=== PATIENT | female | born 1955 | race Caucasian/White ===

== ENCOUNTER 2022-08-05 12:27 | Emergency (ER) | payer MEDICARE, BC, SELFPAY ==
--- NOTE | ~2022-08-05 | XR_ITS ---
XR forearm RT 2V 08/05/2022 13:33 Indication: Status post fall. Arm pain. Procedure: 2 views right forearm Comparison: No prior studies for comparison. Findings: There is moderate polyarticular osteoarthritis of the right wrist and elbow. There is widen ing of the scapholunate distance, consistent with dissociation. Osteopenia. No acute fracture, sublux ation or dislocation. No significant soft tissue abnormality. No foreign bodies. 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 Reviewed, dictated and finalized at location L. 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
--- NOTE | ~2022-08-05 | XR_ITS ---
XR humerus RT 08/05/2022 13:32 Indication: Right arm pain after fall Procedure: 2 views right humerus Comparison: No prior studies for comparison. Findings: Osteopenia. There are degenerative changes of the glenohumeral joint with multiple loose kalpana dies surrounding the joint space. No acute fracture is identified. No focal soft tissue abnormality. No foreign bodies. Impression: 1: No acute bone or joint abnormality. Reviewed, dictated and finalized at location L. Impression: 1: No acute bone or joint abnormality.
[2022-08-05 12:46] VITALS: BP 161/96; PULSE 123; TEMP 36.7; O2SAT 98
[2022-08-05 12:53] VITALS: BP 161/96; PULSE 123; RESP 19; TEMP 36.7; O2SAT 98
--- NOTE | 2022-08-05 14:03 | ED.EXTPRO ---
HPI - Extremity Problem General Chief complaint: Extremity Problem,Nontraumatic Stated complaint: R forearm pain Time Seen by Provider: 08/05/22 13:38 Source: patient History of Present Illness HPI Narrative: 67 years old white female presents with right forearm burning sensation from the elbow to the wrist started over 4 months ago. History of a fall and chronic right elbow pain since February 2021. Patient been seen by a pain management physician. She denies any fever, chills, nausea, vomiting, shortness pain or chest pain. Patient denies any recent trauma. Pain worse with activity, better if she hang her arm out of the bed during sleep at night Related Data Home Medications Medication Instructions Recorded Confirmed amitriptyline 100 mg tablet PO 10/30/19 amoxicillin 250 mg-potassium 1 tablet PO Q8H 10/30/19 clavulanate 125 mg tablet apixaban 5 mg tablet 5 mg PO BID 10/30/19 clonazepam 1 mg tablet 1 mg PO DAILY 10/30/19 cyclobenzaprine 10 mg tablet 10 mg PO TID 10/30/19 diclofenac sodium 1 % gel topical 2 gm topical QID 10/30/19 kit (Diclo Gel) gabapentin 300 mg capsule 300 mg PO TID 10/30/19 omega-3 fatty acids 1,000 mg See Rx Instructions PO DAILY 10/30/19 capsule (Fish Oil Concentrate) ondansetron 4 mg disintegrating 4 mg PO Q8H 10/30/19 tablet Allergies Allergy/AdvReac Type Severity Reaction Status Date / Time No Known Allergies Allergy Verified 08/05/22 12:57 Review of Systems Review of Systems: All systems reviewed & are unremarkable except as noted in HPI and below Exam Narrative: General appearance: Well-developed, well-nourished Skin: Normal color Head: Normocephalic, nontraumatic Eyes: Clear conjunctiva ENT: Oropharynx normal, ears normal, nose normal Neck: Supple, nontender Chest and respiratory: Airway patent, no respiratory distress, no accessory muscle use Heart: Regular rate/rhythm Abdomen: Soft, nontender, no organomegaly, quiet bowel sounds Vascular: Normal peripheral pulses, normal capillary refill. Musculoskeletal: Right upper extremity exam showed no swelling, erythema, warmth, opening wound, slight limited range of motion of the right elbow and right shoulder. 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 Date: 08/05/22 Time: 14:09 Vital Signs Vital signs: Vital Signs Temperature 36.7 C 08/05/22 12:46 Pulse Rate 123 H 08/05/22 12:46 Blood Pressure 161/96 H 08/05/22 12:46 Pulse Oximetry 98 08/05/22 12:46 Temperature 36.7 C 08/05/22 12:53 Pulse Rate 123 H 08/05/22 12:53 Respiratory Rate 19 08/05/22 12:53 Blood Pressure 161/96 H 08/05/22 12:53 Pulse Oximetry 98 08/05/22 12:53 Oxygen Delivery Room Air 08/05/22 12:53 MDM - Extremity (Nontraumatic) MDM Narrative Medical decision making narrative: Patient presents with chronic burning sensation of the right forearm over 4 months ago. Differential diagnosis is peripheral neuropathy, strain, sprain, arthritis. Physical examination is remarkable for right shoulder and right elbow pain with movement otherwise within normal limits. X-ray of the right forearm showed no acute abnormality. Patient probably need to follow-up with neurologist for nerve conduction test to rule out the possibility of nerve related symptoms. Patient been managed by pain management clinic. Imaging Data Radiologist's impression: Impressions Humerus X-Ray 08/05/22 13:34 Impression: 1: No acute bone or joint abnormality. Forearm X-Ray 08/05/22 13:47 Impression: 1: Moderate polyarticular osteoarthriti
[2022-08-05 14:15] VITALS: BP 144/85; PULSE 98; RESP 18; O2SAT 99
== END 2022-08-05 14:16 | disposition home or self-care (01) ==
LOC: ANHED 14:12
PROVIDERS: Emergency Provider Emergency Medicine; PCP Internal Medicine Endocrinology, Diabetes & Metabolism
DX: R20.2 Paresthesia of skin (principal); M19.021 Primary osteoarthritis, right elbow; Z79.01 Long term (current) use of anticoagulants
CPT/HCPCS: 73060; 73090; 99283

== ENCOUNTER 2022-08-21 11:09 | Outpatient (CLI) | payer MEDICARE, BC, SELFPAY ==
--- NOTE | ~2022-08-21 | MM_ITS ---
EXAMINATION: MM screening opal BI w gil HISTORY: Screening mammogram TECHNIQUE: Craniocaudal and mediolateral oblique 3-D tomosynthesis images were obtained and synthetic 2-D images were generated. CAD analysis was submitted and interpreted. COMPARISON: 05/18/2017, 07/26/2014 BREAST PARENCHYMAL COMPOSITION: The breasts are almost entirely fatty. FINDINGS: No suspicious mass, calcification, or architectural distortion are identified in either iraj ast to suggest malignancy. There has been no suspicious interval change. IMPRESSION: 1. No mammographic evidence of malignancy. 2. Recommend routine screening mammography in one year. BI-RADS Category 1: Negative Reviewed, dictated and finalized at location A.
--- NOTE | ~2022-08-21 | DEXA_ITS ---
Bone Density Report Name: LIGIA BROOKS Age: 67 Sex: Female Ethnicity: White Date of : 1955 Indication: postmenopausal; screening for osteoporosis; height loss; prior fracture; Referring Provider: PRAMOD CELESTIN Study: Bone densitometry was performed. Exam Date: August 21, 2022 Accession number: [id number] Bone Density: Region BMD T-score Z-score Classification AP Spine(L1, L2) 1.152 1.6 3.4 Normal Femoral Neck (Left) 0.642 -1.9 -0.2 Osteopenia Total Hip (Left) 0.813 -1.1 0.3 Osteopenia Femoral Neck (Right) 0.678 -1.5 0.1 Osteopenia Total Hip (Right) 0.797 -1.2 0.2 Osteopenia Total Hip Mean 0.805 -1.2 0.3 Osteopenia World Health Organization criteria for BMD impression classify patients as: Normal (T-score at or above -1.0), Osteopenia (T-score between -1.0 and -2.5), or Osteoporosis (T-score at or below -2.5). 10-year Fracture Risk(1): Major Osteoporotic Fracture 17% Hip Fracture 2.6% Reported Risk Factors: [place] (), Neck BMD=0.642, BMI=26.1, previous fracture (1) FRAX(R) Version 3.08. Fracture probability calculated for an untreated patient. Fracture probability may be lower if the patient has received treatment. Clinical Information Provided by Patient: Has had a low trauma fracture Patient maximum height was 65.5 Menopause Age: 47 No regular weight bearing exercise Onset of menses at age 14 Number of children 1 Impression: The patient has low bone mass, based on the Left Femoral Neck T-score. The patient has an estimated ten-year risk of hip fracture of 2.6% and an estimated ten-year risk of major fracture of 17%, based on the WHO FRAX algorithm. The patient has risk factors, including: previous fracture. Discussion: BONE DENSITY IS LOW AT ONE OR MORE SKELETAL SITES. This patient's lowest T-score is low at one or more skeletal sites. It meets the World Health Organization's (WHO) criteria for ?low bone mass? (T-score between -1.0 and -2.5). The patient's 10-year risk of fracture as calculated by FRAX is less than the threshold where pharmacological therapy is recommended by the National Osteoporosis Foundation (NOF). However, all treatment decisions require clinical judgment and consideration of individual patient factors, including patient preferences, comorbidities, previous drug use, risk factors not captured in the FRAX model (e.g., frailty, falls, vitamin D deficiency, increased bone turnover, interval significant decline in bone density) and possible under or overestimation of fracture risk by FRAX. The patient should follow a healthful lifestyle (good nutrition with adequate calcium and vitamin D, and appropriate weight-bearing exercise). Follow-Up: Consider repeating this study in 2 to 3 years to reassess this patient's status, or sooner if
== END 2022-08-21 11:10 | disposition home or self-care (01) ==
LOC: ANHIMG 11:19
PROVIDERS: PCP Internal Medicine Endocrinology, Diabetes & Metabolism; Visit Provider Obstetrics & Gynecology Gynecology
DX: Z12.31 Encounter for screening mammogram for malignant neoplasm of breast (principal); Z78.0 Asymptomatic menopausal state; M85.852 Other specified disorders of bone density and structure, left thigh; M85.851 Other specified disorders of bone density and structure, right thigh
CPT/HCPCS: 77063; 77067; 77080

== ENCOUNTER 2022-10-19 14:20 | Outpatient (CLI) | payer MEDICARE, BC, SELFPAY ==
--- NOTE | ~2022-10-19 | MR_ITS ---
MRI of the right shoulder Technique: Axial proton-density fat-sat images, coronal proton density fat-sat and T2 fat-sat images, and sagittal T1-weighted and T2 fat-sat images were acquired. Clinical History: Pain Findings: There is moderate AC joint degenerative change. Coracoclavicular, coracoacromial, and corac ohumeral ligaments appear to remain intact. There is extensive moderate to high-grade partial thickness articular surface tearing involving essen tially the entire supraspinatus tendon. Tear involves approximately 60-70% of the total tendon thickn ess throughout most of the tendon, with more high-grade tearing focally at the very distal anterior i nsertion. There is moderate tendinosis of the infraspinatus tendon without definite partial or full-t hickness tear. Subscapularis tendon is probably intact, with moderate to advanced tendinosis. Tendon of the long hea d of the biceps is intact. There is superior labral tear, with anterior and posterior extension. There is probable near circumfe rential labral tearing. There is severe glenohumeral joint degenerative change, with diffuse grade IV chondromalacia and infe romedial humeral head osteophyte. There are multiple loose bodies in the joint, especially in the sub scapularis recess (largest loose body measuring 1.7 cm in diameter), with additional loose bodies in the biceps tendon sheath (measuring up to 0.9 cm in diameter). Inferior glenohumeral ligament is intact. No significant fluid distention of the subacromial/subdelto id bursa. No muscle atrophy or edema. Impression: Extensive moderate to high-grade partial thickness articular surface tearing of the supraspinatus ten don, as detailed above. Severe glenohumeral joint degenerative change, with multiple loose bodies, predominantly in the subsc apularis recess and in the biceps tendon sheath. Please see details above. Circumferential degenerative labral tearing. Reviewed, dictated and finalized at [facility]. Impression: Extensive moderate to high-grade partial thickness articular surface tearing of the supraspinatus tendon, as detailed above. Severe glenohumeral joint degenerative change, with multiple loose bodies, pred ominantly in the subscapularis recess and in the biceps tendon sheath. Please s ee details above. Circumferential degenerative labral tearing.
== END 2022-10-19 14:21 | disposition home or self-care (01) ==
PROVIDERS: PCP Internal Medicine Endocrinology, Diabetes & Metabolism
DX: M75.111 Incomplete rotator cuff tear or rupture of right shoulder, not specified as traumatic (principal); M24.011 Loose body in right shoulder
CPT/HCPCS: 73221

== ENCOUNTER 2022-12-30 05:55 | Emergency (ER) | payer MEDICARE, BC, SELFPAY ==
--- NOTE | ~2022-12-30 | US_ITS ---
EXAMINATION: US pelvic complete w TV DATE: 12/30/2022 09:32 INDICATION: Vaginal bleeding TECHNIQUE: Multiple transabdominal and endovaginal sonographic images of the pelvis were obtained. COMPARISON: None. FINDINGS: The uterus measures 5.4 x 2.7 x 3.0 cm. The endometrial complex measures 6 mm in thickness. The righ t ovary is not visualized. The left ovary measures 1.1 x 1.0 x 0.8 cm. With internal vascular flow on color Doppler. There is a trace amount of free fluid in the pelvis. IMPRESSION: 1. Endometrial complex measures 6 mm which would be abnormal in a postmenopausal woman without hormon e replacement and in the setting of abnormal vaginal bleeding would recommend further evaluation with hysteroscopy. Reviewed, dictated and finalized at location A. IMPRESSION: 1. Endometrial complex measures 6 mm which would be abnormal in a postmenopausa l woman without hormone replacement and in the setting of abnormal vaginal blee ding would recommend further evaluation with hysteroscopy.
[2022-12-30 05:58] VITALS: BP 132/81; PULSE 87; RESP 15; TEMP 36.6; O2SAT 100
[2022-12-30 07:07] LABS: Basophils Absolute Auto 0.1 K/mm3 (0.0-0.1); Basophils Percent Auto 0.6 % (0.2-1.2); Eosinophils Absolute Auto 0.3 K/mm3 (0-0.3); Hematocrit 43.6 % (37.0-47.0); Hemoglobin 14.2 g/dL (12.0-15.0); Immature Granulocyte Absolute 0.04 K/mm3 (0.00-0.031); Immature Granulocyte Percent A 0.4 % (0-0.5); Lymphocytes Absolute Auto 4.51 K/mm3 (0.9-3.2); Lymphocytes Percent Auto 41.2 % (18.3-44.2); Mean Corpuscular HGB Conc 32.6 g/dl (32-36); Mean Corpuscular Hemoglobin 32.3 pg (26-34); Mean Corpuscular Volume 99.3 fl (80-100); Mean Platelet Volume 8.5 fl (7.4-10.4); Monocytes Absolute Auto 0.8 K/mm3 (0.1-0.6); Monocytes Percent Auto 7.1 % (2.6-8.5); Neutrophils Absolute Auto 5.2 K/mm3 (1.3-6.7); Neutrophils Percent Auto 47.7 % (45.5-73.1); Platelet Count Result 292 k/mm3 (150-375); Red Blood Count 4.39 M/mm3 (4.2-5.4); Red Cell Distribution Width 12.5 % (11.5-14.5)
[2022-12-30 07:13] LABS: Alanine Aminotransferase 21 U/L (6-35); Albumin Level 4.5 g/dL (3.5-5.1); Alkaline Phosphatase 107 U/L (38-126); Anion Gap 9 mmol/L (8-16); Aspartate Amino Transferase 22 U/L (14-36); Bilirubin,Total 0.5 mg/dL (0.2-1.3); Blood Urea Nitrogen 14 mg/dL (7-17); Calcium 9.3 mg/dL (8.4-10.2); Carbon Dioxide 32 mmol/L (22-30); Chloride 102 mmol/L (98-107); Estimated CRCL calculation 57 ml/min; Estimated Glomerular Filt Rate > 60; Glucose 109 mg/dL (65-110); Potassium 3.8 mmol/L (3.4-5.0); Sodium 143 mmol/L (137-145)
[2022-12-30 07:25] VITALS: O2SAT 98
[2022-12-30 07:25] LABS: Bilirubin Urine Negative (Negative); Blood Urine 3+ (Negative); Glucose Urine UA Negative (Negative); Ketones Urine Negative (Negative); Leukocyte Esterase Ur 1+ LEU/UL (Negative); Nitrate Urine Negative (Negative); Protein Urine 2+ mg/dL (Negative); Specific Grav Ur 1.007 (1.001-1.035); Urobilinogen Urine 0.2 mg/dL (<2.0)
[2022-12-30 07:28] LABS: Bacteria Urine None Seen /hpf; Non Pathogenic Casts 0-2; RBC Urine >100 /hpf (0-2); Squamous Epithelial Cell Urine None seen /hpf (Few)
[2022-12-30 07:33] LABS: Appearance Urine Cloudy (Clear); Color Urine Light Red (Yellow)
[2022-12-30 07:34] LABS: Add Urine Microscopic? YES
[2022-12-30 07:38] LABS: Partial Thromboplastin Time 35.2 SECONDS (22.3-36.8)
[2022-12-30 07:39] VITALS: O2SAT 98
[2022-12-30 07:45] VITALS: O2SAT 96
[2022-12-30 07:46] VITALS: BP 117/53; O2SAT 96
[2022-12-30 07:47] VITALS: RESP 14; O2SAT 96
[2022-12-30] MEDS: SODIUM CHLORIDE 0.9% IV 1,000 ML 999 ML IV CONT (08:12)
--- NOTE | 2022-12-30 08:16 | PC.NURSE ---
Patient off unit to US.
--- NOTE | 2022-12-30 10:13 | ED.FEMALEGU ---
HPI - Female Genitourinary General Chief complaint: Vaginal Bleeding Stated complaint: vaginal bleeding i think it is from urine Time Seen by Provider: 12/30/22 08:52 Source: patient Mode of arrival: ambulatory Limitations: no limitations History of Present Illness HPI Narrative: Vito is a 67-year-old female patient presenting to the clinic today with complaints of possible vaginal bleeding verses hematuria. She reports that on it was raining and she was trying to remove some rocks from her ditch and fell into some dirty rain water in the ditch and did not clean off right away. She denies any urinary symptoms. States she noticed this morning when she voided that she had blood in the toilet. She does have a history of ulcerative colitis. She does not feel as though the blood is coming from the vagina. Related Data Home Medications Medication Instructions Recorded Confirmed amitriptyline 100 mg tablet PO 10/30/19 amoxicillin 250 mg-potassium 1 tablet PO Q8H 10/30/19 clavulanate 125 mg tablet apixaban 5 mg tablet 5 mg PO BID 10/30/19 clonazepam 1 mg tablet 1 mg PO DAILY 10/30/19 cyclobenzaprine 10 mg tablet 10 mg PO TID 10/30/19 diclofenac sodium 1 % gel topical 2 gm topical QID 10/30/19 kit (Diclo Gel) gabapentin 300 mg capsule 300 mg PO TID 10/30/19 omega-3 fatty acids 1,000 mg See Rx Instructions PO DAILY 10/30/19 capsule (Fish Oil Concentrate) ondansetron 4 mg disintegrating 4 mg PO Q8H 10/30/19 tablet Allergies Allergy/AdvReac Type Severity Reaction Status Date / Time No Known Allergies Allergy Verified 08/05/22 12:57 Review of Systems Review of Systems: Pertinent positives per HPI. Patient denies any fever, chills, rash, headache, visual changes, dizziness, cough, runny nose, sore throat, shortness of breath, chest pain, palpitations, nausea, vomiting, diarrhea, constipation, abdominal pain, or any urinary issues. PMFSH Comments At the time of my signature, I reviewed and agree with the nursing past medical, surgical, social, and family history. There is no relevant family history pertinent to the patient complaint. Exam Narrative: General: Well-developed, well nourished, in no apparent distress Head: Normocephalic, atraumatic. Cardio: Regular rate and rhythm, s1 and s2 normal, no murmur appreciated. Resp: Clear to auscultation bilaterally, no rhonchi, rales, wheezing or rubs. Abdomen: Soft, pliable, bowel sounds present in all quadrants, mild pain over the suprapubic bladder-tender to palpation, no CVAT tenderness. : Pelvic exam performed with Nicole RN at bedside. Verbal consent obtained from patient. Normal external female genitalia without lesions or masses, Urinary meatus: patent without discharge, Vagina: No lesions, masses, or discharge, Cervix: pink without mass, lesions, discharge, or tenderness. Adnexa: without palpable mass or tenderness. Rectum: No bleeding or mass, external hemorrhoids visualized. Course Course Emergency Course: Portions of this record may have been created with voice recognition software. Vital Signs Vital signs: Vital Signs Temperature 36.6 C 12/30/22 05:58 Pulse Rate 87 12/30/22 05:58 Respiratory Rate 15 12/30/22 05:58 Blood Pressure 132/81 12/30/22 05:58 Pulse Oximetry 100 12/30/22 05:58 Oxygen Delivery Room Air 12/30/22 05:58 Temperature 36.6 C 12/30/22 05:58 Pulse Rate 87 12/30/22 05:58 Respiratory Rate 14 12/30/22 07:47 Blood Pressure 117/53 L 12/30/22 07:46 Pulse Oximetry 96 12/30/22 07:47 Oxygen Delivery Room Air 12/30/22 05:58 Vital signs reviewed MDM - Female Genitourinary MDM Narrative Medical decision making narrative: At the time of visit patient is resting on the exam stretcher. Patient is having hematuria- urinalysis shows 1+ leukocyte, 6-10 white blood cells, red blood cells, protein positive,and 3+ blood in the urine. Pelvic exam was performed
== END 2022-12-30 10:37 | disposition home or self-care (01) ==
PROVIDERS: Student in an Organized Health Care Education/Training Program; Emergency Provider Nurse Practitioner Family; PCP Internal Medicine Endocrinology, Diabetes & Metabolism
DX: N39.0 Urinary tract infection, site not specified (principal); R31.29 Other microscopic hematuria; K51.90 Ulcerative colitis, unspecified, without complications; Z79.01 Long term (current) use of anticoagulants
CPT/HCPCS: 36415; 76830; 76856; 80053; 81001; 85025; 85610; 85730; 86850; 86900; 86901; 87086; 96360; 99284; J7030

== ENCOUNTER 2023-08-28 08:07 | Emergency (ER) | payer MEDICARE, BC, SELFPAY ==
--- NOTE | ~2023-08-28 | XR_ITS ---
EXAMINATION: XR chest 1V portable DATE: 08/28/2023 08:39 INDICATION: Cough and shortness of breath. TECHNIQUE: A single frontal view of the chest was obtained. COMPARISON: None. FINDINGS: There is mild atelectasis in left lower lung zone. No pleural effusion or pneumothorax. The heart size is normal. IMPRESSION: 1. Mild atelectasis in left lower lung zone. Reviewed, dictated and finalized at location A.
[2023-08-28 08:14] VITALS: BP 144/103; PULSE 105; RESP 23; TEMP 36.8; O2SAT 98
--- NOTE | 2023-08-28 08:14 | ECG_ITS ---
SEE SCANNED COPY FOR CONFIRMED REPORT MTDD
--- NOTE | 2023-08-28 08:22 | ED.SOB ---
HPI - SOB/Dyspnea General Chief Complaint: Shortness of Breath/Dyspnea Stated Complaint: diff brearthing/cough Time Seen by Provider: 08/28/23 08:09 History of Present Illness HPI Narrative: 68-year-old female presenting to the emergency department for evaluation of cough and associated shortness of breath. Patient states he began developing symptoms on Tuesday and was evaluated in outside hospital on Tuesday. Patient was diagnosed with a cough with no underlying pneumonia. Patient states her symptoms worsened yesterday and so she presented to the emergency department today. Patient has a deep cough. Patient denies any history of COPD. Patient denies frequent pneumonia. Patient does report seasonal allergies and feels that sinus congestion seasonal allergies may be playing a part in her current illness. Related Data Home Medications Medication Instructions Recorded Confirmed amitriptyline 100 mg tablet PO 10/30/19 amoxicillin 250 mg-potassium 1 tablet PO Q8H 10/30/19 clavulanate 125 mg tablet apixaban 5 mg tablet 5 mg PO BID 10/30/19 clonazepam 1 mg tablet 1 mg PO DAILY 10/30/19 cyclobenzaprine 10 mg tablet 10 mg PO TID 10/30/19 diclofenac sodium 1 % gel topical 2 gm topical QID 10/30/19 kit (Diclo Gel) gabapentin 300 mg capsule 300 mg PO TID 10/30/19 omega-3 fatty acids 1,000 mg See Rx Instructions PO DAILY 10/30/19 capsule (Fish Oil Concentrate) ondansetron 4 mg disintegrating 4 mg PO Q8H 10/30/19 tablet Allergies Allergy/AdvReac Type Severity Reaction Status Date / Time No Known Allergies Allergy Verified 08/28/23 08:20 Review of Systems Review of Systems: All systems reviewed & are unremarkable except as noted in HPI and below Exam Narrative: APPEARANCE: Well appearing, no pain, no distress, well-nourished. HEAD: normocephalic, atraumatic. EYES: PERRLA/EOMI, conjunctivae clear. NOSE: Normal no drainage EARS:TMS clear with good light reflex. THROAT: Pharynx clear, no exudate. NECK: Supple. No adenopathy, no masses. RESPIRATORY: Coarse lung sounds CARDIOVASCULAR: Regular rate and rhythm without murmurs rubs or gallops. ABDOMINAL: Soft, nontender, nondistended, normal bowel sounds MUSCULOSKELETAL: Moves all extremities. Strength/ROM intact, No edema, No calf tenderness. NEURO: Alert. Cranial nerves II through XII intact. Grossly intact SKIN: Warm, dry. Normal Color Course Course Emergency Course: Patient felt improved with treatment and is being discharged home with treatment for suspected pneumonia. Vital Signs Vital signs: Vital Signs Temperature 98.3 F 08/28/23 08:14 Pulse Rate 105 H 08/28/23 08:14 Respiratory Rate 23 H 08/28/23 08:14 Blood Pressure 144/103 H 08/28/23 08:14 Pulse Oximetry 98 08/28/23 08:14 Oxygen Delivery Room Air 08/28/23 08:14 Temperature 98.3 F 08/28/23 08:14 Pulse Rate 82 08/28/23 10:28 Respiratory Rate 20 08/28/23 10:28 Blood Pressure 118/76 08/28/23 10:28 Pulse Oximetry 98 08/28/23 10:28 Oxygen Delivery Room Air 08/28/23 08:14 MDM - SOB/Dyspnea MDM Narrative Medical decision making narrative: 68-year-old female presents emergency department for evaluation of cough and congestion. Patient has had symptoms since Tuesday and on Tuesday was started on medication. Patient presenting ED for evaluation of worsening symptoms. The patient is afebrile with no leukocytosis and a stable hemoglobin of 13.8, no acute abnormalities on the patient's CMP patient's BNP is not elevated. Patient was negative for influenza RSV and for COVID. Chest x-ray shows no large pneumonia. Patient does have significant wheeze on exam that was improved with presents treatments. Patient will be started on antibiotics, prednisone and her albuterol will be refilled. Differential Diagnosis Differential diagnosis: Likely acute exacerbation of chronic obstructive airways disease, congestive heart failure, community acquired pneumonia an
[2023-08-28 08:25] VITALS: PULSE 109; RESP 20
[2023-08-28] MEDS: ALBUTEROL SULFATE NEB 2.5 MG/3 ML INH 5 MG INHALATION (08:25)
[2023-08-28 08:26] LABS: Basophils Percent Auto 0.5 % (0.2-1.2); Eosinophils Absolute Auto 0.3 K/mm3 (0-0.3); Eosinophils Percent Auto 2.8 % (0-4.4); Hematocrit 41.7 % (37.0-47.0); Hemoglobin 13.8 g/dL (12.0-15.0); Immature Granulocyte Absolute 0.02 K/mm3 (0.00-0.031); Immature Granulocyte Percent A 0.2 % (0-0.5); Lymphocytes Absolute Auto 3.04 K/mm3 (0.9-3.2); Lymphocytes Percent Auto 34.4 % (18.3-44.2); Mean Corpuscular HGB Conc 33.1 g/dl (32-36); Mean Corpuscular Hemoglobin 31.9 pg (26-34); Mean Corpuscular Volume 96.5 fl (80-100); Mean Platelet Volume 8.4 fl (7.4-10.4); Monocytes Absolute Auto 0.8 K/mm3 (0.1-0.6); Monocytes Percent Auto 9.4 % (2.6-8.5); Neutrophils Absolute Auto 4.7 K/mm3 (1.3-6.7); Neutrophils Percent Auto 52.7 % (45.5-73.1); Platelet Count Result 235 k/mm3 (150-375); Red Blood Count 4.32 M/mm3 (4.2-5.4); Red Cell Distribution Width 12.5 % (11.5-14.5); White Blood Count 8.8 K/mm3 (4.5-10.0)
[2023-08-28 08:36] LABS: Alanine Aminotransferase 18 U/L (6-35); Albumin Level 4.6 g/dL (3.5-5.1); Alkaline Phosphatase 113 U/L (38-126); Anion Gap 8 mmol/L (4-12); Aspartate Amino Transferase 40 U/L (14-36); Bilirubin,Total 0.5 mg/dL (0.2-1.3); Blood Urea Nitrogen 12 mg/dL (7-17); Calcium 9.3 mg/dL (8.4-10.2); Carbon Dioxide 29 mmol/L (22-30); Chloride 106 mmol/L (98-107); Estimated CRCL calculation 67 ml/min; Estimated Glomerular Filt Rate > 60; Glucose 106 mg/dL (65-110); Potassium 3.8 mmol/L (3.4-5.0); Sodium 143 mmol/L (137-145)
[2023-08-28 08:40] VITALS: PULSE 104; RESP 18
[2023-08-28] MEDS: LORazepam (*CRX) 0.5 MG TABLET PO (09:02)
[2023-08-28 09:05] LABS: Influenza A QL RT-PCR Negative (Negative); Influenza B QL RT-PCR Negative (Negative); RSV RNA, RT-PCR Negative (Negative); SARS-CoV-2 RNA PCR Negative (Negative)
[2023-08-28 09:09] VITALS: BP 122/75; PULSE 114; RESP 20; O2SAT 99
--- NOTE | 2023-08-28 09:28 | PC.NURSE ---
at 0900, called lab to add on BNP.
[2023-08-28 09:55] LABS: NT Pro B Type Natriuretic Pept 205 pg/mL (19.9-100)
[2023-08-28] MEDS: AMOXICILLIN/CLAVULANATE K 875-125 MG TAB 1 TABLET PO (10:13)
[2023-08-28] MEDS: AZITHROMYCIN 250 MG TABLET 500 MG PO (10:14)
[2023-08-28] MEDS: predniSONE 20 MG TABLET 40 MG PO (10:14)
[2023-08-28 10:28] VITALS: BP 118/76; PULSE 82; RESP 20; O2SAT 98
== END 2023-08-28 10:29 | disposition home or self-care (01) ==
PROVIDERS: Emergency Provider Emergency Medicine; PCP Internal Medicine Endocrinology, Diabetes & Metabolism
DX: J18.9 Pneumonia, unspecified organism (principal); Z20.822 Contact with and (suspected) exposure to COVID-19; Z79.01 Long term (current) use of anticoagulants; Z79.899 Other long term (current) drug therapy
CPT/HCPCS: 36415; 71045; 80053; 83880; 85025; 87637; 93005; 94640; 99284; A9270; J7512